=== PATIENT | female | born 1980 | race Caucasian/White ===

== ENCOUNTER 2016-08-06 15:10 | Emergency (ER) | payer OTHER, MEDICAID ==
[2016-08-06 15:33] VITALS: O2SAT 97
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
[2016-08-06 16:02] VITALS: BP 120/64; PULSE 82; RESP 16
[2016-08-06 16:43] VITALS: TEMP 97.5
== END 2016-08-06 17:08 | disposition home or self-care (01) ==
DX: S06.0X0A Concussion without loss of consciousness, initial encounter (principal); V13.4XXA Pedal cycle driver injured in collision with car, pick-up truck or van in traffic accident, initial encounter; Y92.410 Unspecified street and highway as the place of occurrence of the external cause; Y99.8 Other external cause status; Y93.89 Activity, other specified

== ENCOUNTER 2016-08-15 11:03 | Emergency (ER) | payer OTHER, MEDICAID ==
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
[2016-08-15 12:46] VITALS: BP 110/81; PULSE 75; RESP 16; O2SAT 97
[2016-08-15 14:57] VITALS: TEMP 97.9
== END 2016-08-15 14:57 | disposition home or self-care (01) ==
DX: G44.309 Post-traumatic headache, unspecified, not intractable (principal); F07.81 Postconcussional syndrome

== ENCOUNTER → 2016-11-19 | Outpatient (CLI) | payer MEDICAID ==
[~2016-11-19] MED LIST: GADOBUTROL 10 ML VIAL IVP ONE
== END ==
LOC: FIMAGING 09:04
PROVIDERS: ATTEND Psychiatry & Neurology Neurology
DX: G44.309 Post-traumatic headache, unspecified, not intractable (principal); S06.0X9A Concussion with loss of consciousness of unspecified duration, initial encounter; M50.323 Other cervical disc degeneration at C6-C7 level; M48.02 Spinal stenosis, cervical region; M51.34 Other intervertebral disc degeneration, thoracic region
CPT/HCPCS: A9585; J1200

== ENCOUNTER → 2017-02-01 | Outpatient (CLI) | payer MEDICAID | LOC: FIMAGING 10:47 | PROVIDERS: ATTEND Family Medicine Sports Medicine | DX: M25.511 Pain in right shoulder (principal); M75.51 Bursitis of right shoulder; M75.81 Other shoulder lesions, right shoulder ==

== ENCOUNTER → 2018-04-24 | Outpatient (CLI) | payer MEDICAID | LOC: FIMAGING 17:26 | PROVIDERS: ATTEND Physical Medicine & Rehabilitation Pain Medicine | DX: G54.5 Neuralgic amyotrophy (principal); S43.402A Unspecified sprain of left shoulder joint, initial encounter; M75.52 Bursitis of left shoulder; S73.101A Unspecified sprain of right hip, initial encounter; M48.07 Spinal stenosis, lumbosacral region; M53.87 Other specified dorsopathies, lumbosacral region ==

== ENCOUNTER → 2018-06-01 | Outpatient (CLI) | payer MEDICAID | LOC: BMCIMAGING 09:49 | PROVIDERS: ATTEND Physician Assistant | DX: N63.10 Unspecified lump in the right breast, unspecified quadrant (principal) | CPT/HCPCS: 86694-90; G0472 ==